=== PATIENT | male | born 1965 | race Caucasian/White ===

== ENCOUNTER → 2017-12-31 | Outpatient (REF) | payer OTHER ==
[2017-12-31 14:10] LABS: CHOLESTEROL LEVEL 235 MG/DL (<200); CHOLESTEROL RISK RATIO 4.122 (<5); HDL CHOLESTEROL 57 MG/DL (>40); LDL CHOLESTEROL 136.8 MG/DL (<100); NON-HDL-C 178 MG/DL; TRIGLYCERIDES LEVEL 206 MG/DL (<150)
== END ==
LOC: M SFHCPLAZ 10:10
DX: E78.2 Mixed hyperlipidemia (principal)
CPT/HCPCS: 80061

== ENCOUNTER → 2018-04-18 | Outpatient (REF) | payer OTHER | LOC: M SFHCLERA 19:47 | DX: J02.9 Acute pharyngitis, unspecified (principal) ==

== ENCOUNTER → 2018-05-30 | Outpatient (CLI) | payer OTHER | LOC: M PAIN 15:00 | DX: G89.29 Other chronic pain (principal); M51.37 Other intervertebral disc degeneration, lumbosacral region; M79.1 Myalgia; M46.92 Unspecified inflammatory spondylopathy, cervical region; F41.9 Anxiety disorder, unspecified; F32.9 Major depressive disorder, single episode, unspecified; E78.5 Hyperlipidemia, unspecified; R03.0 Elevated blood-pressure reading, without diagnosis of hypertension; J45.909 Unspecified asthma, uncomplicated; Z87.891 Personal history of nicotine dependence; Z88.8 Allergy status to other drugs, medicaments and biological substances; Z79.899 Other long term (current) drug therapy | CPT/HCPCS: G0463 ==

== ENCOUNTER 2019-07-26 18:50 | Inpatient (IN) | payer OTHER ==
[~2019-07-26] VITALS: Ht 177.8 cm; Wt 92.5 kg
[2019-07-26] MEDS ORDERED: NS 1,000 ML IV ONE (19:30)
[2019-07-26] MEDS ORDERED: OMEP10CA78 PO (19:36)
[2019-07-26] MEDS ORDERED: VENL150T24 PO (19:36)
[2019-07-26] MEDS ORDERED: ASMA1AER3 INH (19:36)
[2019-07-26 19:58] LABS: BASO # 0.1 10^3/uL (0.0-0.2); BASO % 0.4 % (0.0-1.0); EOS % 0.2 % (0.0-3.0); LYMPH # 1.5 10^3/uL (1.5-5.0); LYMPH % 10.3 % (24.0-44.0); MEAN CORPUSCULAR HEMOGLOBIN 30.7 pg (27.0-33.0); MEAN CORPUSCULAR HGB CONC 34.1 g/dl (32.0-36.5); MONO # 0.8 10^3/uL (0.0-0.8); MONO % 5.5 % (0.0-5.0); NEUTROPHILS % 83.3 % (36.0-66.0); PLATELET COUNT, AUTOMATED 250 10^3/uL (150-450); RED BLOOD COUNT 4.89 10^6/uL (4.30-6.10); WHITE BLOOD COUNT 14.4 10^3/uL (4.0-10.0)
[2019-07-26] MEDS ORDERED: HALOPERIDOL 5 MG/ML VIAL (J1630) IV STA (20:13)
[2019-07-26] MEDS ORDERED: diphenhydrAMINE INJ 50MG/ML VIAL (J1200) IV STA (20:13)
[2019-07-26 20:19] LABS: ALBUMIN 3.8 GM/DL (3.2-5.2); ALT/SGPT 32 U/L (12-78); BILIRUBIN,DIRECT 0.1 MG/DL (0.0-0.2); BILIRUBIN,TOTAL 0.5 MG/DL (0.2-1.0); BLOOD UREA NITROGEN 14 MG/DL (7-18); CALCIUM LEVEL 9.5 MG/DL (8.5-10.1); CARBON DIOXIDE LEVEL 21 MEQ/L (21-32); CHLORIDE LEVEL 110 MEQ/L (98-107); CREATININE FOR GFR 1.12 MG/DL (0.70-1.30); GLOMERULAR FILTRATION RATE > 60.0 (>56); GLUCOSE, FASTING 134 MG/DL (70-100); LIPASE 131 U/L (73-393); POTASSIUM SERUM 4.8 MEQ/L (3.5-5.1); SODIUM LEVEL 141 MEQ/L (136-145); TOTAL PROTEIN 6.9 GM/DL (6.4-8.2)
--- NOTE | 2019-07-26 22:14 | REPVR ---
EXAM: CT Head Without Contrast EXAM DATE/TIME: 07/26/2019 9:29 PM CLINICAL HISTORY: 54 years old, male; Pain; Headache; Additional info: Dizzy TECHNIQUE: Imaging protocol: Computed tomography of the head without contrast. Radiation optimization: All CT scans at this facility use at least one of these dose optimization techniques: automated exposure control; mA and/or kV adjustment per patient size (includes targeted exams where dose is matched to clinical indication); or iterative reconstruction. COMPARISON: No relevant prior studies available. FINDINGS: Brain: Unremarkable. No hemorrhage. No significant white matter disease. No edema. Ventricles: Unremarkable. No ventriculomegaly. Bones/joints: Unremarkable. No acute fracture. Sinuses: Mild mucosal thickening of the ethmoid sinuses. The remaining paranasal sinuses are well aerated as visualized. Mastoid air cells: Visualized mastoid air cells are well aerated. Soft tissues: Unremarkable. IMPRESSION: No acute abnormality. Electronically signed by: Ryland Irving On 07/26/2019 22:13:22 PM
[2019-07-27] MEDS ORDERED: NS 500 ML IV ONE (00:30)
[2019-07-27] MEDS ORDERED: LORazepam 2 MG/ML VIAL (J2060) IV STA ×2 (01:54→10:21)
[2019-07-27] MEDS ORDERED: MECLIZINE 25 MG TABLET PO ONE (02:00)
[2019-07-27] MEDS ORDERED: PIPERACILLIN/TAZOBACTAM SOD 3.375 GM in D5W MINI-BAG PLUS 50 ML IV ONE (02:45)
--- NOTE | 2019-07-27 02:49 | HPEPDOC ---
[facility] Medical History & Physical Date of Admission Jul 27, 2019 Date of Service: Jul 27, 2019 Primary Care Physician: ANOOP ANDINO MD Attending Physician: LEISA MATHUR MD History and Physical TIME OF SERVICE: 3:45 AM CHIEF COMPLAINT: Dizziness HISTORY OF PRESENT ILLNESS: This is a 54-year-old male who presents with complaints of dizziness that began yesterday. The dizziness didn't improve, so he decided to come to the ED for additional evaluation. He denies having ringing in the ears, denies having blurry vision, denies having a headache, denies having a cough or runny nose, d enies having fevers, denies having chills, and denies having abdominal pain or chest pain. He had 1 episode of nonbloody emesis while in the ED. Per discussion with the ED provider the CT of the head was negative, and the patient's dizziness did resolve despite receiving IV fluids, Reglan, and Benad ryl. REVIEW OF SYSTEMS: 12 point review of systems negative except as listed in HPI PAST MEDICAL/ SURGICAL HISTORY: Chronic HTN, Dyslipidemia, Chronic Asthma Chronic neck pain/attendance pain medicine clinic. DJD. Status post and surgery Depression/anxiety SOCIAL HISTORY: - Tobacco quit FAMILY HISTORY: AAA. CVA Chronic hypertension. Brain aneurysm Asthma. Brain Cancer Anxiety/depression ALLERGIES: Please see below. HOME MEDICATIONS: Please see below. PHYSICAL EXAMINATION: VITAL SIGNS: Please see below. GENERAL APPEARANCE: Well-nourished, well-developed, not in apparent distress, as leep but arousable vocal stimuli HEENT: Normocephalic, atraumatic, mucous members moist and pink CARDIOVASCULAR: Regular rate and rhythm. No murmurs, rubs or gallops LUNGS: Clear to auscultation bilaterally on room air ABDOMEN: Positive bowel sounds, soft and nontender on palpation MUSCULOSKELETAL: Range of motion intact in all 4 extremities. Strength 5 out of 5 in all extremities NEUROLOGICAL: Nerves II-12 are grossly intact. Speech is not dysarthric, there is horizontal nystagmus with movement of the eyes to the left, the vision. Complains of dizziness when he sits up and when he stands up. He stood up, he stumbled a little bit and reported that he couldn't take any steps PSYCHIATRIC: Alert and oriented to person, place and time, able to understand and follow commands LABORATORY DATA: See below. IMAGING: CT of the head is unremarkable MICROBIOLOGY: Please see below. ASSESSMENT: Mr. Spears is a 54 yr old M w a PMH of chronic hypertension, dyslipidemia, DJD affecting multiple joints, and chronic asthma who will be admitted for evaluation of presyncope and SIRS. PLAN: 1. SIRS cause TBD The patient has tachycardia, leukocytosis Qsofa Score = O = low risk Plan: admit to [facility] / telemetry / Sepsis protocol w lactic acid / zosyn x1 / c/w IVF /f/u blood cx, UA w Cx, TSH, Mag, Trop 2. Presyncope cause to be determined He has horizontal nystagmus The glucose elevated, but not enough to cause dizziness & the calcium is within normal limits The CT of the head is unremarkable Plan: fall precautions/ keep head of bed elevated/ orthostats / telemetry / f/u UA / f/u EKG to screen for arrhythmia, caroitd US to r/o carotid stenosis & MRI brain to r/o vertebro basilar insufficiency / PT consult for dill gamble pike and epliey maneuvers / c/w meclizine 3. Chronic hypertension. Plan: continue home meds 4. Chronic Asthma Plan: continue home meds 5. Chronic DJD Plan: c/w home meds DVT prophylaxis with Lovenox. Disposition pending clinical course Vital Signs Vital Signs Date Time Temp Pulse Resp B/P (MAP) Pulse Ox O2 Delivery O2 Flow Rate FiO2 07/27/19 01:15 103 18 130/71 (90) 07/26/19 22:30 96.6 97 Room Air Laboratory Data Labs 24H Laboratory Tests 2 07/26/19 19:44: Immature Granulocyte % (Auto) 0.3, White Blood Count 14.4H, Red Blood Count 4.89, Hemoglobin 15.0, Hematocrit 44.0, Mean Corpuscular Volume 90.0, Mean Corpuscular Hemoglobin 30.7, Mean Corpuscular Hemoglobin Concent 34.1, Red Cell Distribution Width 12.1, Platelet Count 250, Neutrophils (%) (Auto) 83.3H, Lymphocytes (%) (Auto) 10.3L, Monocytes (%) (Auto) 5.5H, Eosinophils (%) (Auto) 0.2, Basophils (%) (Auto) 0.4, Neutrophils # (Auto) 12.0H, Lymphocytes # (Auto) 1.5, Monocytes # (Auto) 0.8, Eosinophils # (Auto) 0.0, Basophils # (Auto) 0.1, Nucleated Red Blood Cells % (auto) 0.0, Anion Gap 10, Glomerular Filtration Rate > 60.0, Calcium Level 9.5, Aspartate Amino Transf (AST/SGOT) 21, Alanine Aminotransferase (ALT/SGPT) 32, Alkaline Phosphatase 88, Total Bilirubin 0.5, Direct Bilirubin 0.1, Total Protein 6.9, Albumin 3.8, Albumin/Globulin Ratio 1.23, Lipase 131 CBC/BMP Laboratory Tests 07/26/19 19:44 Red Blood Count 4.89, Mean Corpuscular Volume 90.0, Mean Corpuscular Hemoglobin 30.7, Mean Corpuscular Hemoglobin Concent 34.1, Red Cell Distribution Width 12.1, Neutrophils (%) (Auto) 83.3 H, Lymphocytes (%) (Auto) 10.3 L, Monocytes (%) (Auto) 5.5 H, Eosinophils (%) (Auto) 0.2, Basophils (%) (Auto) 0.4, Neutrophils # (Auto) 12.0 H, Lymphocytes # (Auto) 1.5, Monocytes # (Auto) 0.8, Eosinophils # (Auto) 0.0, Basophils # (Auto) 0.1 Home Medications Scheduled Mometasone Furoate (Asmanex Hfa) 200 Mcg/Act Hfa.aer.ad, 2 PUFF INH BID Omeprazole (Omeprazole) 10 Mg Capsule.dr, 10 MG PO DAILY Venlafaxine HCl (Venlafaxine HCl ER) 150 Mg Tab.er.24, 75 MG PO BID ORDERED 150MG DAILY, PATIENT STATES HE TAKES HALF TABLET IN THE MORNING AND HALF TABLET IN THE EVENING Allergies Coded Allergies: mold (Verified Allergy, Unknown, 07/26/19) A-FIB/CHADSVASC A-FIB History Current/History of A-Fib/PAF?: No Current PO Anticoag Therapy: LEISA Sharma MD Jul 27, 2019 02:49
[2019-07-27] MEDS: NS 1,000 ML IV SCH ×3 (04:42→21:50)
[2019-07-27] MEDS ORDERED: NEOSPORIN OINT 0.9 GM PKT (FLOOR STOCK) As Ordered ONE (04:49)
[2019-07-27 04:53] VITALS: BP_SYST 131; BP_SYST 150; BP_SYST 151; BP_DIAS 81; BP_DIAS 95; BP_DIAS 99
[2019-07-27] MEDS ORDERED: ALBUTEROL 90 MCG/ACT 8GM HFA INHALER INH PRN (05:00)
[2019-07-27 06:00] VITALS: BP 146/97
[2019-07-27 06:01] LABS: BASO % 0.4 % (0.0-1.0); EOS # 0.1 10^3/uL (0.0-0.5); EOS % 1.1 % (0.0-3.0); HEMOGLOBIN 13.4 g/dl (13.5-17.5); LYMPH # 2.5 10^3/uL (1.5-5.0); LYMPH % 22.5 % (24.0-44.0); MEAN CORPUSCULAR HEMOGLOBIN 29.8 pg (27.0-33.0); MEAN CORPUSCULAR HGB CONC 33.5 g/dl (32.0-36.5); MEAN CORPUSCULAR VOLUME 89.1 fl (80.0-96.0); MONO % 9.4 % (0.0-5.0); NEUTROPHILS # 7.3 10^3/uL (1.5-8.5); NEUTROPHILS % 66.3 % (36.0-66.0); PLATELET COUNT, AUTOMATED 264 10^3/uL (150-450); RED BLOOD COUNT 4.49 10^6/uL (4.30-6.10)
[2019-07-27 06:33] LABS: BLOOD UREA NITROGEN 12 MG/DL (7-18); CALCIUM LEVEL 9.1 MG/DL (8.5-10.1); CARBON DIOXIDE LEVEL 26 MEQ/L (21-32); CHLORIDE LEVEL 110 MEQ/L (98-107); CREATININE FOR GFR 1.01 MG/DL (0.70-1.30); GLOMERULAR FILTRATION RATE > 60.0 (>56); GLUCOSE, FASTING 102 MG/DL (70-100); SODIUM LEVEL 142 MEQ/L (136-145); TROPONIN I < 0.02 NG/ML (< 0.10)
[2019-07-27] MEDS: PANTOPRAZOLE 20 MG TAB PO SCH (08:27)
[2019-07-27] MEDS: MECLIZINE 25 MG TABLET PO SCH ×2 (08:27→19:46)
[2019-07-27] MEDS: ENOXAPARIN 40 MG/0.4 ML SYRINGE (J1650) SC SCH (08:27)
[2019-07-27] MEDS: VENLAFAXINE **XR** 75MG CAPSULE PO SCH (08:27)
[2019-07-27 10:30] VITALS: BP_SYST 162; BP_SYST 163; BP_SYST 167; BP_DIAS 104; BP_DIAS 108; BP_DIAS 109
--- NOTE | 2019-07-27 13:20 | REP ---
CAROTID ULTRASOUND: Real-time ultrasound evaluation and duplex Doppler interrogation of the extracranial carotid vasculature is performed. There is mild plaquing and narrowing in both carotid bulbs extending into the internal and external carotid arteries. Luminal narrowing is less than 50%. There is no evidence of hemodynamically significant stenosis of either internal carotid artery. Normal flow velocities are seen. The vertebral arteries demonstrate normal direction of flow. RIGHT LEFT Peak systolic velocity ICA 60.7 cm/s 82.4 cm/s End diastolic velocity ICA 30.1 cm/s 35.6 cm/s Peak systolic velocity CCA 93.1 cm/s 77.5 cm/s Peak systolic velocity ECA 107.4 cm/s 80.7 cm/s ICA/CCA ratio 0.73 1.06 IMPRESSION: Bilateral luminal narrowing of the internal carotid arteries less than 50%. No evidence of hemodynamically significant stenosis. Electronically Signed by Ian Padilla MD 07/27/2019 01:11 P
[2019-07-27 14:00] VITALS: BP_SYST 117; BP_SYST 163; BP_SYST 164; BP_DIAS 73; BP_DIAS 92; BP_DIAS 96
--- NOTE | 2019-07-27 17:14 | IPNPDOC ---
Text Note Date of Service The patient was seen on 07/27/19. NOTE Mr. Spears continues to complain of dizziness. He is not otherwise having ear p ain. He has had some nausea. This dizziness was of acute onset. He has been ruled out for acute stroke thus far. Objective: HEENT: Neck is supple, there is no adenopathy or thyromegaly, he has scleral injection, oral mucosa is moist, tympanic membranes are clearly visualized with no fluid or pus. Cardiovascular: Regular rate and rhythm with a normal S1 and S2 and no appreciable murmur or bruit. Respiratory: Patient is clear to auscultation with no rhonchi, rales, wheezes or cough. Abdomen: Soft, nontender, nondistended, bowel tones are present. Extremities: No peripheral edema or lesions, pedal pulses are palpable Neuro: Remarkable feature of neuro exam is at the patient demonstrates horizo ntal nystagmus. Psych: Patient is extremely anxious and agitated. Imaging: Carotid Ultrasound IMPRESSION: Bilateral luminal narrowing of the internal carotid arteries less than 50%. No evidence of hemodynamically significant stenosis. Electronically Signed by Ian Padilla MD 07/27/2019 01:11 P Assessment/Plan: 1. SIRS. Leukocytosis is normalized. Patient is afebrile. He has minimal tachycardia and no hypotension. Cultures are negative to date. 2. Vertigo. Patient continues with horizontal nystagmus. Patient has been assessed by therapy services; he has had initial Apley maneuvers and is felt to be an appropriate candidate for therapy. The patient is very impatient with the process and wants immediate results. VS,Cameronbone, I+O VS, Fishbone, I+O Laboratory Tests 07/26/19 19:44 Red Blood Count 4.89, Mean Corpuscular Volume 90.0, Mean Corpuscular Hemoglobin 30.7, Mean Corpuscular Hemoglobin Concent 34.1, Red Cell Distribution Width 12.1, Neutrophils (%) (Auto) 83.3 H, Lymphocytes (%) (Auto) 10.3 L, Monocytes ( %) (Auto) 5.5 H, Eosinophils (%) (Auto) 0.2, Basophils (%) (Auto) 0.4, Neutrophils # (Auto) 12.0 H, Lymphocytes # (Auto) 1.5, Monocytes # (Auto) 0.8, Eosinophils # (Auto) 0.0, Basophils # (Auto) 0.1 07/27/19 05:20 Red Blood Count 4.49, Mean Corpuscular Volume 89.1, Mean Corpuscular Hemoglobin 29.8, Mean Corpuscular Hemoglobin Concent 33.5, Red Cell Distribution Width 12.4, Neutrophils (%) (Auto) 66.3 H, Lymphocytes (%) (Auto) 22.5 L, Monocytes (%) (Auto) 9.4 H, Eosinophils (%) (Auto) 1.1, Basophils (%) (Auto) 0.4, Neutrophils # (Auto) 7.3, Lymphocytes # (Auto) 2.5, Monocytes # (Auto) 1.0 H, Eosinophils # (Auto) 0.1, Basophils # (Auto) 0.0, Calcium Level 9.1 Vital Signs Date Time Temp Pulse Resp B/P (MAP) Pulse Ox O2 Delivery O2 Flow Rate FiO2 07/27/19 14:00 99.9 99 16 117/73 (88) 100 07/27/19 04:30 Room Air I&O- Last 24 Hours up to 6 AM 07/27/19 06:00 Intake Total 1500 ml Output Total 0 ml Balance 1500 ml SOFIE IGLESIAS MD Jul 27, 2019 17:14
[2019-07-27] MEDS: ACETAMINOPHEN 650MG ER TAB (TYLENOL ARTHRITIS) PO PRN (19:46)
[2019-07-27 22:00] VITALS: BP_SYST 142; BP_SYST 145; BP_SYST 151; BP_SYST 168; BP_DIAS 87; BP_DIAS 88; BP_DIAS 91; BP_DIAS 94
[2019-07-28 06:00] VITALS: BP_SYST 131; BP_SYST 133; BP_SYST 147; BP_DIAS 82; BP_DIAS 83; BP_DIAS 87; BP_DIAS 97
[2019-07-28] MEDS: NS 1,000 ML IV SCH (06:04)
[2019-07-28 06:11] LABS: HEMATOCRIT 41.4 % (42.0-52.0); HEMOGLOBIN 13.8 g/dl (13.5-17.5); MEAN CORPUSCULAR HEMOGLOBIN 30.5 pg (27.0-33.0); MEAN CORPUSCULAR HGB CONC 33.3 g/dl (32.0-36.5); MEAN CORPUSCULAR VOLUME 91.6 fl (80.0-96.0); PLATELET COUNT, AUTOMATED 251 10^3/uL (150-450); RED BLOOD COUNT 4.52 10^6/uL (4.30-6.10)
[2019-07-28 06:36] LABS: BLOOD UREA NITROGEN 8 MG/DL (7-18); CALCIUM LEVEL 8.8 MG/DL (8.5-10.1); CARBON DIOXIDE LEVEL 27 MEQ/L (21-32); CHLORIDE LEVEL 110 MEQ/L (98-107); CREATININE FOR GFR 0.94 MG/DL (0.70-1.30); GLOMERULAR FILTRATION RATE > 60.0 (>56); GLUCOSE, FASTING 93 MG/DL (70-100); MAGNESIUM LEVEL 2.1 MG/DL (1.8-2.4); POTASSIUM SERUM 3.9 MEQ/L (3.5-5.1); SODIUM LEVEL 143 MEQ/L (136-145)
[2019-07-28] MEDS: VENLAFAXINE **XR** 75MG CAPSULE PO SCH (08:48)
[2019-07-28] MEDS: ENOXAPARIN 40 MG/0.4 ML SYRINGE (J1650) SC SCH (08:48)
[2019-07-28] MEDS: PANTOPRAZOLE 20 MG TAB PO SCH (08:48)
[2019-07-28] MEDS: MECLIZINE 25 MG TABLET PO SCH ×2 (08:48→20:15)
[2019-07-28] MEDS: ACETAMINOPHEN 650MG ER TAB (TYLENOL ARTHRITIS) PO PRN ×2 (09:25→18:15)
--- NOTE | 2019-07-28 11:00 | IPNPDOC ---
Text Note Date of Service The patient was seen on 07/28/19. NOTE Subjective: Patient was seen and examined while lying in bed. Patient is still complaining of dizziness this morning. Patient says his dizziness is worse when he is upright and is slightly improved by laying flat. Patient denies any nausea with this. Patient is frustrated with the dizziness and was hoping that we reveal that quickly fix the issue however, did explain to him that benign positional vertigo does take some time to treat. No acute events overnight. Review of systems General: Patient denies fevers HEENT: Patient endorses dizziness Cardiovascular: Patient denies chest pain Respiratory: Patient denies shortness of breath, cough GI: Patient denies abdominal pain, nausea, vomiting, diarrhea : Patient denies pain or difficulty with urination Neurological: Patient denies numbness or tingling in extremities Extremities: Patient denies swelling or pain in extremities Objective: Vitals: (see below) General: No acute distress, laying comfortably in bed. HEENT: Normocephalic, atraumatic, moist mucous membranes. Patient does have horizontal nystagmus when looking to the right. Neck: No JVD or lymphadenopathy Cardiac: RRR, No murmurs Pulm: Clear to auscultation b/l. No wheezing, rhonchi Abd: NT/ND + BS Ext: No edema or cyanosis. Radial, posterior tibial, and dorsalis pedis pulses equal bilaterally. Labs (see below) Images: An ultrasound of the carotids performed on 07/27/2019 shows bilateral luminal narrowing of the internal carotid arteries less than 50%. No evidence of hemodynamically significant stenosis. Assessment/Plan 1. Vertigo. Patient continues to have horizontal nystagmus when looking to the right. Patient has been assessed by occupational therapy will continue to work with the patient before he can be safely discharged. 2.SIRS. On admission, the patient met criteria however, there was no source of infection that was able to be identified. Patient is doing better and is not having any leukocytosis, tachycardia or hypotension. Patient's cultures are negative. 3. Anxiety. Patient is very anxious about what is happening to him. Patient on venlafaxine 150 mg and has IV Ativan written for him. DVT prophy: Lovenox 40 mg daily Dispo: Pending clearance from physical and occupational therapy VS,Miguel, I+O VS, Miguel, I+O Laboratory Tests 07/28/19 05:41 Red Blood Count 4.52, Mean Corpuscular Volume 91.6, Mean Corpuscular Hemoglobin 30.5, Mean Corpuscular Hemoglobin Concent 33.3, Red Cell Distribution Width 12.4, Calcium Level 8.8 Vital Signs Date Time Temp Pulse Resp B/P (MAP) Pulse Ox O2 Delivery O2 Flow Rate FiO2 07/28/19 06:00 97.9 78 17 147/83 (104) 98 07/27/19 04:30 Room Air I&O- Last 24 Hours up to 6 AM 07/28/19 06:00 Intake Total 2380 ml Output Total 0 ml Balance 2380 ml GME ATTESTATION GME ATTESTATION My faculty preceptor for this patient encounter was physically present during the encounter and was fully available. All aspects of the patient interview, examination, medical decision making process, and medical care plan development were reviewed and approved by the faculty preceptor. The faculty preceptor is aware and concurs with the plan as stated in the body of this note and will attest to such by his/her cosignature. ATTENDING NOTE I, Amanda Chau, have independently examined this patient and performed my own physical exam, as well as reviewed the documentation and edited where necessary. I have discussed in detail with the resident / student the findings and plan of treatment as documented by the resident / student and edited their note. I agree with their findings and treatment plan and have edited their documentation. I will continue to follow the patient during this hospital stay. MURALI BEAN DO Jul 28, 2019 11:00 AMANDA CHAU MD Jul 28, 2019 15:44
[2019-07-28] MEDS: LORazepam 2 MG/ML VIAL (J2060) IV PRN ×2 (12:50→20:16)
[2019-07-28 14:00] VITALS: BP_SYST 128; BP_SYST 146; BP_SYST 148; BP_DIAS 102; BP_DIAS 92; BP_DIAS 98
--- NOTE | 2019-07-28 18:22 | ECGEPIP ---
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
[2019-07-28 22:00] VITALS: BP_SYST 128; BP_SYST 130; BP_SYST 134; BP_SYST 138; BP_DIAS 86; BP_DIAS 90
[2019-07-29 06:00] VITALS: BP 139/88
[2019-07-29] MEDS: VENLAFAXINE **XR** 75MG CAPSULE PO SCH (08:04)
[2019-07-29] MEDS: ENOXAPARIN 40 MG/0.4 ML SYRINGE (J1650) SC SCH (08:04)
[2019-07-29] MEDS: PANTOPRAZOLE 20 MG TAB PO SCH (08:04)
[2019-07-29] MEDS: MECLIZINE 25 MG TABLET PO SCH ×2 (08:04→21:57)
[2019-07-29 08:49] LABS: HEMATOCRIT 43.3 % (42.0-52.0); HEMOGLOBIN 15.2 g/dl (13.5-17.5); MEAN CORPUSCULAR HGB CONC 35.1 g/dl (32.0-36.5); MEAN CORPUSCULAR VOLUME 88.4 fl (80.0-96.0); PLATELET COUNT, AUTOMATED 275 10^3/uL (150-450); WHITE BLOOD COUNT 8.9 10^3/uL (4.0-10.0)
[2019-07-29 09:09] LABS: BLOOD UREA NITROGEN 12 MG/DL (7-18); CALCIUM LEVEL 9.7 MG/DL (8.5-10.1); CARBON DIOXIDE LEVEL 28 MEQ/L (21-32); CHLORIDE LEVEL 107 MEQ/L (98-107); GLOMERULAR FILTRATION RATE > 60.0 (>56); GLUCOSE, FASTING 91 MG/DL (70-100); POTASSIUM SERUM 3.9 MEQ/L (3.5-5.1); SODIUM LEVEL 142 MEQ/L (136-145)
[2019-07-29] MEDS: ACETAMINOPHEN 650MG ER TAB (TYLENOL ARTHRITIS) PO PRN ×2 (09:48→21:57)
[2019-07-29] MEDS: LORazepam 0.5 MG TAB PO PRN ×2 (10:09→21:57)
--- NOTE | 2019-07-29 11:23 | IPNPDOC ---
Text Note Date of Service The patient was seen on 07/29/19. NOTE Subjective: Patient was seen and examined at bedside. Patient is complaining of still being dizzy. Patient says is better when is lying down however, when he is lying down he is still dizzy. Patient has been working with occupational therapy. Patient is also complaining of some pain in the back of his neck that starts at the base of the skull and radiates up to his head and down through his neck. Patient is very concerned and anxious about his dizziness and is wondering what we can do to fix. There is no acute events overnight. Review of systems General: Patient denies fevers HEENT: Patient endorses headaches and dizziness Cardiovascular: Patient denies chest pain Respiratory: Patient denies shortness of breath, cough GI: Patient denies abdominal pain, nausea, vomiting, diarrhea : Patient denies pain or difficulty with urination Neurological: Patient denies numbness or tingling in extremities Extremities: Patient denies swelling or pain in extremities Objective: Vitals: (see below) General: No acute distress, laying comfortably in bed. HEENT: Patient has horizontal nystagmus with rightward gaze. Neck: There is hypertonicity and spasm of the muscles of the left paraspinal region of the cervical spine. Cardiac: RRR, No murmurs Pulm: Clear to auscultation b/l. No wheezing, rhonchi Abd: NT/ND + BS Ext: No edema Labs (see below) Images: No new imaging has been performed. Assessment/Plan 1. Vertigo. Patient continues to have horizontal nystagmus with rightward gaze. He will continue work with occupational therapy and we will order an MRI of the brain and cervical spine. 2.SIRS, resolved. We will continue to monitor. 3. Anxiety. Patient is very anxious and wants notes, all of them. Patient's venlafaxine 150 mg and we have changed his IV Ativan to oral Ativan. DVT prophy: Lovenox 40 mg daily Dispo: Pending clearance of physical therapy and occupational therapy and results of the MRIs JEANNETTE,Miguel, I+O VS, Miguel, I+O Laboratory Tests 07/29/19 08:29 Red Blood Count 4.90, Mean Corpuscular Volume 88.4, Mean Corpuscular Hemoglobin 31.0, Mean Corpuscular Hemoglobin Concent 35.1, Red Cell Distribution Width 12.2, Calcium Level 9.7 Vital Signs Date Time Temp Pulse Resp B/P (MAP) Pulse Ox O2 Delivery O2 Flow Rate FiO2 07/29/19 06:00 97.6 89 17 139/88 (105) 96 07/27/19 04:30 Room Air I&O- Last 24 Hours up to 6 AM 07/29/19 05:59 Intake Total 1620 ml Balance 1620 ml GME ATTESTATION GME ATTESTATION My faculty preceptor for this patient encounter was physically present during the encounter and was fully available. All aspects of the patient interview, examination, medical decision making process, and medical care plan development were reviewed and approved by the faculty preceptor. The faculty preceptor is aware and concurs with the plan as stated in the body of this note and will attest to such by his/her cosignature. ATTENDING NOTE I, Amanda Chau, have independently examined this patient and performed my own physical exam, as well as reviewed the documentation and edited where necessary. I have discussed in detail with the resident / student the findings and plan of treatment as documented by the resident / student and edited their note. I agree with their findings and treatment plan and have edited their documentation. I will continue to follow the patient during this hospital stay. MURALI BEAN DO Jul 29, 2019 11:23 AMANDA CHAU MD Jul 29, 2019 14:38
[2019-07-29] MEDS ORDERED: PROHANCE 279.3MG/ML 5ML VIAL (A9576) As Ordered ONE (14:12)
[2019-07-29] MEDS ORDERED: PROHANCE 279.3MG/ML 15ML VIAL (A9576) As Ordered ONE (14:12)
--- NOTE | 2019-07-29 14:42 | REP ---
MRI of the brain without and with contrast Indication: Persistent dizziness, headache. Comparison: CT head of 07/26/2019. Normal Technique: MRI of the brain was performed without contrast utilizing sagittal T1 FLAIR, and axial DWI, T1, T2, and FLAIR precontrast imaging. Following the uneventful intravenous administration of 18 ml of ProHance, axial and coronal T1 FLAIR imaging was performed. Findings: There is patient motion artifact which degrades image quality and decreases the sensitivity for detection of small lesions. Within this limitation, there is no restricted diffusion to suggest acute ischemia or infarction. The ventricles and sulci are symmetric. There is no intra- or extra-axial fluid collection. There is no mass effect. There is no midline shift or basal cistern effacement. The visualized flow voids are preserved. There is no abnormal enhancement. There is mild mucosal thickening of the maxillary sinuses. Remaining paranasal sinuses and mastoid air cells are clear. Impression: No acute intracranial abnormality. Electronically Signed by Shiv Mishra MD 07/29/2019 02:34 P
--- NOTE | 2019-07-29 14:52 | REP ---
MRI of the cervical spine without contrast Indication: Persistent dizziness, headache. Comparison: None Technique: MRI of the cervical spine was performed utilizing sagittal T1 FLAIR, STIR, and T2 weighted imaging as well as axial T1 and T2-weighted imaging. No intravenous contrast was administered. Findings: There is straightening of cervical lordosis which could be related to positioning and/or muscle spasm. There is normal alignment of the cervical spine. Vertebral body heights are maintained. There are degenerative changes C6-C7 including mild loss of disc height and endplate marrow signal abnormality. There is disc osteophyte complex formation eccentric to the left at C6-C7 with left-sided spinal canal narrowing and impression on the left-sided cord at this level. There is no gross signal abnormality within the cord. The neural foramina are patent. There is no significant spinal canal stenosis or neural foraminal compromise at remaining cervical levels. The paraspinal soft tissues are within normal limits. Impression: Cervical spondylosis at C6-C7 with disc osteophyte complex formation eccentric to the left and left-sided spinal canal narrowing with impression on the left-sided cord. No signal abnormality within the cord. Neural foramina are patent. Electronically Signed by Shiv Mishra MD 07/29/2019 02:45 P
[2019-07-29 16:00] VITALS: BP 140/92
[2019-07-29 20:00] VITALS: BP 138/88
[2019-07-30] VITALS (7 sets, daily range): BP systolic 121–148; BP diastolic 78–112
[2019-07-30] MEDS ORDERED: ONDANSETRON 4 MG ORAL DISINTEGRATING TAB (Q0162 PER 1MG) PO ONE (03:15)
[2019-07-30] MEDS: MECLIZINE 25 MG TABLET PO SCH (08:19)
[2019-07-30] MEDS: VENLAFAXINE **XR** 75MG CAPSULE PO SCH (08:19)
[2019-07-30] MEDS: PANTOPRAZOLE 20 MG TAB PO SCH (08:20)
[2019-07-30] MEDS: ENOXAPARIN 40 MG/0.4 ML SYRINGE (J1650) SC SCH (08:20)
[2019-07-30] MEDS ORDERED: MECL-86 PO (14:51)
[2019-07-30] MEDS ORDERED: CLAR10TA7 PO (14:51)
[2019-07-30] MEDS ORDERED: LORATADINE 10 MG TAB PO ONE (15:00)
--- NOTE | 2019-07-30 15:04 | DS.PDOC ---
Discharge Summary General Date of Admission Jul 28, 2019 at 10:24 Date of Discharge 07/30/19 Primary Care Physician: ANOOP ANDINO MD Attending Physician: AMANDA CHAU MD Discharge Summary PROCEDURES PERFORMED DURING STAY: None. ADMITTING/DISCHARGE DIAGNOSES: 1. Benign positional vertigo 2. Anxiety COMPLICATIONS/CHIEF COMPLAINT: Dizziness HISTORY OF PRESENT ILLNESS/HOSPITAL COURSE: Patient is a 54-year-old male who presents to the emergency department with complaints of dizziness that began on the day prior to him coming to the emergency department. The dizziness is not improved so he came to the emergency department. Patient denies having any ringing in his ears, blurry vision, headache, cough or runny nose. Patient did have 1 episode of nonbloody emesis while in the emergency department. CT scan of the head was negative in the emergency department but the patient's dizziness d oes not resolve with IV fluids, Reglan, and Benadryl overdose the patient was admitted for further observation. While in the hospital, patient's dizziness slowly improved with occupational and physical therapy. Patient was not deemed safe for discharge so patient was changed from observation status to inpatient admission. Physical therapy and occupational therapy continued to work with the patient is a patient slowly began to improve. On the third day of hospitalization, patient began to complain of a headache that started at the base of the skull and went up through to the side of his head and radiated down his neck. An MRI of the brain and cervical spine was ordered which did not show any lesion or any other cause for the patient's headache or dizziness. Patient was diagnosed with benign positional vertigo and on the fourth day of his hospitalization, patient was deemed safe for discharge with outpatient follow-up with physical therapy and was discharged home. Patient was started on loratadine for possible labyrinthitis or eustachian tube dysfunction and patient was also started on meclizine while in the hospital. Patient had numerous episodes of anxiety attacks due to the dizziness and was given small doses of Ativan which did calm the patient down. Once we were able to rule out many diagnoses, the patient's anxiety did remit slightly however, the patient still appears anxious about what is going on. DISCHARGE MEDICATIONS: Please see below. ALLERGIES: Please see below. PHYSICAL EXAMINATION ON DISCHARGE: Vitals: (see below) General: No acute distress, laying comfortably in bed. HEENT: Moist mucous membranes. Patient had horizontal nystagmus with right gaze. Neck: No JVD or lymphadenopathy Cardiac: RRR, No murmurs Pulm: Clear to auscultation b/l. No wheezing, rhonchi Abd: NT/ND + BS Ext: No edema or cyanosis LABORATORY DATA: Please see below. IMAGING: A CT of the head performed on 07/26/2019 showed no acute abnormality. A carotid ultrasound performed on 07/27/2019 showed bilateral luminal narrowing of the internal carotid arteries less than 50%. No evidence of hemodynamically significant stenosis. A MRI of the cervical spine without contrast performed on 07/29/2019 showed cervical spondylosis at C6-C7 with disc osteophyte complex formation eccentric to the left and left-sided spinal canal narrowing with impression on the left- sided cord. No signal abnormality within the cord. Neuro foramina are patent. A MRI of the brain without followed by contrast performed on 07/29/2019 showed no acute intracranial abnormality. PROGNOSIS: Good ACTIVITY: As tolerated. DIET: Regular DISCHARGE PLAN/DISPOSITION: Discharge home DISCHARGE INSTRUCTIONS: 1. Follow-up with physical therapy outpatient as scheduled. 2. Continue taking loratadine 10 mg by mouth once a day for the next 14 days. 3. Continue taking meclizine 25 mg by mouth twice a day. 4. Follow-up with primary care provider within the next 5-10 days. 5. Return to the ED if symptoms worsen. DISCHARGE CONDITION: Stable. TIME SPENT ON DISCHARGE: Greater than 30 minutes. Vital Signs/I&Os Vital Signs Date Time Temp Pulse Resp B/P (MAP) Pulse Ox O2 Delivery O2 Flow Rate FiO2 07/30/19 07:12 128 136/90 (105) 07/30/19 06:00 98.1 17 99 07/27/19 04:30 Room Air I&O- Last 24 Hours up to 6 AM 07/30/19 06:00 Intake Total 710 ml Balance 710 ml Microbiology Microbiology 07/27/19 Blood Culture - Preliminary, Resulted No Growth after 72 hours. All specime... Discharge Medications Scheduled Loratadine (Claritin) 10 Mg Tablet, 10 MG PO ONCE Meclizine HCl (Meclizine HCl) 25 Mg Tablet, 25 MG PO Q12H Mometasone Furoate (Asmanex Hfa) 200 Mcg/Act Hfa.aer.ad, 2 PUFF INH BID, (Reported) Omeprazole (Omeprazole) 10 Mg Capsule.dr, 10 MG PO DAILY, (Reported) Venlafaxine HCl (Venlafaxine HCl ER) 150 Mg Tab.er.24, 75 MG PO BID, (Reported) ORDERED 150MG DAILY, PATIENT STATES HE TAKES HALF TABLET IN THE MORNING AND HALF TABLET IN THE EVENING Allergies Coded Allergies: mold (Verified Allergy, Unknown, 07/26/19) GME ATTESTATION GME ATTESTATION My faculty preceptor for this patient encounter was physically present during the encounter and was fully available. All aspects of the patient interview, examination, medical decision making process, and medical care plan development were reviewed and approved by the faculty preceptor. The faculty preceptor is aware and concurs with the plan as stated in the body of this note and will attest to such by his/her cosignature. ATTENDING NOTE I, Amanda Chau, have independently examined this patient and performed my own physical exam, as well as reviewed the documentation and edited where necessary. I have discussed in detail with the resident / student the findings and plan of treatment as documented by the resident / student and edited their note. I agree with their findings and treatment plan and have edited their documentation. I will continue to follow the patient during this hospital stay. Time spent on discharge 37 minutes MURALI BEAN DO Jul 30, 2019 15:04 AMANDA CHAU MD Jul 30, 2019 16:15
[2019-07-30] MEDS ORDERED: VIST25CA PO (16:30)
[2019-07-30] MEDS ORDERED: hydrOXYzine 25 MG TAB PO PRN (16:45)
== END 2019-07-30 17:04 | disposition home or self-care (01) | DRG 111 ==
LOC: EDBD 18:50 → M ED 18:50 → M ED INP 18:51 → M MSPAV 07-27 04:53 → OBSVTOIN 07-28 10:24
PROVIDERS: ADMIT Internal Medicine; ATTEND Internal Medicine
DX: H81.11 Benign paroxysmal vertigo, right ear (principal); I10 Essential (primary) hypertension; E78.5 Hyperlipidemia, unspecified; J45.909 Unspecified asthma, uncomplicated; M54.2 Cervicalgia; F32.9 Major depressive disorder, single episode, unspecified; F41.9 Anxiety disorder, unspecified; Z87.891 Personal history of nicotine dependence; Z79.899 Other long term (current) drug therapy

== ENCOUNTER 2019-08-05 12:39 | Outpatient (RCR) | payer OTHER ==
[~2019-08-05 12:39] MED LIST: ASMA1AER3 INH; CLAR10TA7 PO; MECL-86 PO; OMEP10CA78 PO; VENL150T24 PO; VIST25CA PO
== END 2019-08-17 ==
LOC: M PT 12:39
PROVIDERS: ATTEND Family Medicine
DX: R42 Dizziness and giddiness (principal)

== ENCOUNTER → 2021-04-10 | Outpatient (CLI) | payer OTHER ==
[2021-04-10 18:43] LABS: HEMOGLOBIN 14.5 g/dl (13.5-17.5); MEAN CORPUSCULAR HEMOGLOBIN 30.1 pg (27.0-33.0); MEAN CORPUSCULAR VOLUME 91.3 fl (80.0-96.0); PLATELET COUNT, AUTOMATED 265 10^3/uL (150-450); RED BLOOD COUNT 4.82 10^6/uL (4.30-6.10); WHITE BLOOD COUNT 8.7 10^3/uL (4.0-10.0)
[2021-04-10 19:08] LABS: HEMOGLOBIN A1c 5.8 %
[2021-04-10 19:11] LABS: ALBUMIN 3.6 GM/DL (3.2-5.2); ALT/SGPT 35 U/L (12-78); BILIRUBIN,TOTAL 0.2 MG/DL (0.2-1.0); BLOOD UREA NITROGEN 16 MG/DL (7-18); CALCIUM LEVEL 8.7 MG/DL (8.5-10.1); CARBON DIOXIDE LEVEL 27 MEQ/L (21-32); CHLORIDE LEVEL 109 MEQ/L (98-107); CHOLESTEROL LEVEL 197 MG/DL (<200); CHOLESTEROL RISK RATIO 3.517 (<5); CREATININE FOR GFR 0.98 MG/DL (0.70-1.30); GLOMERULAR FILTRATION RATE > 60.0 (>56); GLUCOSE, FASTING 78 MG/DL (70-100); HDL CHOLESTEROL 56 MG/DL (>40); LDL CHOLESTEROL 84 MG/DL (<100); NON-HDL-C 141 MG/DL; POTASSIUM SERUM 4.6 MEQ/L (3.5-5.1); SODIUM LEVEL 141 MEQ/L (136-145); TOTAL PROTEIN 6.7 GM/DL (6.4-8.2); TRIGLYCERIDES LEVEL 285 MG/DL (<150)
[2021-04-10 19:16] LABS: CREATININE, URINE 93.8 MG/DL; MALB URINE SIEMENS 5.8 MG/L; MAU/CREAT RATIO 6.1 MCG/MG (0.0-30.0)
== END ==
LOC: M LAB 17:24
PROVIDERS: ATTEND Physician Assistant
DX: Z12.5 Encounter for screening for malignant neoplasm of prostate (principal); R10.9 Unspecified abdominal pain; I11.9 Hypertensive heart disease without heart failure; J45.40 Moderate persistent asthma, uncomplicated; E78.2 Mixed hyperlipidemia

== ENCOUNTER → 2022-03-12 | Outpatient (REF) | payer OTHER ==
[~2022-03-12] MED LIST changes: -OMEP10CA78 PO; +OMEP1CAP71 PO
== END ==
LOC: M LAB REF 16:05
PROVIDERS: ATTEND Physician Assistant Medical
DX: R50.9 Fever, unspecified (principal); R05.9 Cough, unspecified; R53.83 Other fatigue

== ENCOUNTER → 2022-06-02 | Outpatient (CLI) | payer OTHER ==
[2022-06-02 10:20] LABS: HEMATOCRIT 45.8 % (42.0-52.0); MEAN CORPUSCULAR HGB CONC 32.8 g/dl (32.0-36.5); MEAN CORPUSCULAR VOLUME 91.6 fl (80.0-96.0); PLATELET COUNT, AUTOMATED 261 10^3/uL (150-450); WHITE BLOOD COUNT 5.5 10^3/uL (4.0-10.0)
[2022-06-02 10:46] LABS: HEMOGLOBIN A1c 5.7 %
[2022-06-02 10:55] LABS: ALBUMIN 3.6 GM/DL (3.2-5.2); ALT/SGPT 37 U/L (12-78); BILIRUBIN,TOTAL 0.4 MG/DL (0.2-1.0); BLOOD UREA NITROGEN 15 MG/DL (7-18); C REACTIVE PROTEIN QUANTITATIV < 0.30 MG/DL (0.00-0.30); CALCIUM LEVEL 9.6 MG/DL (8.5-10.1); CARBON DIOXIDE LEVEL 31 MEQ/L (21-32); CHLORIDE LEVEL 113 MEQ/L (98-107); CHOLESTEROL LEVEL 203 MG/DL (<200); CHOLESTEROL RISK RATIO 2.942 (<5); CREATININE FOR GFR 1.19 MG/DL (0.70-1.30); FREE T4 0.96 NG/DL (0.76-1.46); GLOMERULAR FILTRATION RATE > 60.0 (>56); GLUCOSE, FASTING 103 MG/DL (70-100); HDL CHOLESTEROL 69 MG/DL (>40); LDL CHOLESTEROL 118 MG/DL (<100); NON-HDL-C 134 MG/DL; POTASSIUM SERUM 5.2 MEQ/L (3.5-5.1); SODIUM LEVEL 143 MEQ/L (136-145); THYROID STIMULATING HORMONE 0.669 uIU/ML (0.358-3.740); TOTAL PROTEIN 6.7 GM/DL (6.4-8.2); TRIGLYCERIDES LEVEL 82 MG/DL (<150)
[2022-06-02 11:21] LABS: MAU/CREAT RATIO 5.4 MCG/MG (0.0-30.0)
== END ==
LOC: M LAB 09:46
PROVIDERS: ATTEND Internal Medicine Hematology
DX: I10 Essential (primary) hypertension (principal)

== ENCOUNTER → 2025-05-22 | Outpatient (REF) | payer OTHER ==
[~2025-05-22] MED LIST changes: -ASMA1AER3 INH; +MOME13HF5 INH
[2025-05-22 11:40] LABS: ESTIMATED AVERAGE GLUCOSE 117.0 MG/DL (60-110)
[2025-05-22 12:03] LABS: CALCIUM LEVEL 9.3 MG/DL (8.3-10.6); CARBON DIOXIDE LEVEL 29.0 MMOL/L (20-31); CHLORIDE LEVEL 107.0 MMOL/L (98-107); CHOLESTEROL LEVEL 222.0 MG/DL (<200); CHOLESTEROL RISK RATIO 4.05 (<5); CREATININE FOR GFR 1.07 MG/DL (0.70-1.30); GLOMERULAR FILTRATION RATE 78.5 (>49); LDL CHOLESTEROL 147.7 MG/DL (<100); NON-HDL-C 167.3 MG/DL; POTASSIUM SERUM 4.6 MMOL/L (3.5-5.1); SODIUM LEVEL 143.0 MMOL/L (136-145); TRIGLYCERIDES LEVEL 98.0 MG/DL (<150)
== END ==
LOC: M LAB 10:10
PROVIDERS: ATTEND Student in an Organized Health Care Education/Training Program
DX: Z00.00 Encounter for general adult medical examination without abnormal findings (principal); I10 Essential (primary) hypertension

== ENCOUNTER → 2025-05-22 | Outpatient (REF) | payer OTHER | LOC: M LAB 09:57 | PROVIDERS: ATTEND Student in an Organized Health Care Education/Training Program | DX: Z53.9 Procedure and treatment not carried out, unspecified reason (principal) ==